=== PATIENT | female | born 1990 | race Hispanic/Latino ===

== ENCOUNTER 2019-03-24 22:25 | Observation (INO) | payer BC ==
[~2019-03-24] VITALS: Ht 157.5 cm; Wt 74.8 kg
[2019-03-24] MEDS ORDERED: LACTATED RINGERS 1000ML IV PRN (22:45)
[2019-03-24 23:01] LABS: APPEARANCE,URINE Clear (CLEAR); BILIRUBIN,URINE Negative (NEGATIVE); COLOR,URINE Yellow (YELLOW); GLUCOSE, URINE (UA) Negative (NEGATIVE); KETONES,URINE Negative (NEGATIVE); LEUKOCYTE ESTERASE ,URINE Trace (NEGATIVE); NITRATE,URINE Negative (NEGATIVE); OCCULT BLOOD,URINE Negative (NEGATIVE); PH,URINE 6.5 (5.0-8.0); PROTEIN,URINE Negative (NEGATIVE)
[2019-03-24 23:05] VITALS: BP 95/51
[2019-03-24] MEDS ORDERED: LACTATED RINGERS 1000ML 1,000 ML IV ONE (23:09)
[2019-03-24 23:38] LABS: BACTERIA,URINE Moderate /HPF (None Seen); RBC,URINE 0-1 /HPF (0-1)
[2019-03-29] MEDS ORDERED: FERR-82 PO (23:53)
== END 2019-03-25 09:30 | disposition home or self-care (01) ==
LOC: EDH 22:25 → LDH 22:26
PROVIDERS: ADMIT Specialist; ATTEND Specialist
DX: O60.03 Preterm labor without delivery, third trimester (principal); Z3A.37 37 weeks gestation of pregnancy
CPT/HCPCS: 81001; 99283; G0378 ×11; J7120; 96360; 96361

== ENCOUNTER 2019-03-29 23:01 | Inpatient (IN) | payer BC | END 2019-03-31 12:25 | disposition home or self-care (01) | LOC: EDH 23:01 → LDH 23:10 → WSH 03-30 10:45 | PROC: 10E0XZZ Delivery of Products of Conception, External Approach (ICD-10-PCS; principal; 2019-03-31) | PROC: 0W8NXZZ Division of Female Perineum, External Approach (ICD-10-PCS; 2019-03-31) | DX: O34.211 Maternal care for low transverse scar from previous cesarean delivery (principal); Z37.0 Single live birth; N85.8 Other specified noninflammatory disorders of uterus; O69.81X0 Labor and delivery complicated by cord around neck, without compression, not applicable or unspecified ==